=== PATIENT | female | born 1990 | race Caucasian/White ===

== ENCOUNTER → 2023-07-12 13:19 | Outpatient (BNVA) | payer MEDICAID, SELFPAY | PROVIDERS: Visit Provider Nurse Practitioner Women's Health | DX: Z34.90 Encounter for supervision of normal pregnancy, unspecified, unspecified trimester (principal) | CPT/HCPCS: 80053; 80307; 81000; 82570; 84156; 84439; 84443; 84481; 84550; 85027; 86592; 86762; 86803; 86850; 86900; 87086; 87340; 87806 ==

== ENCOUNTER 2023-07-23 13:07 | Outpatient (CLI) | payer MEDICAID, SELFPAY ==
[2023-07-23 13:55] LABS: Total Volume, Urine 3100 mL
== END 2023-07-23 13:08 | disposition home or self-care (01) ==
PROVIDERS: Visit Provider Nurse Practitioner Women's Health
DX: Z34.90 Encounter for supervision of normal pregnancy, unspecified, unspecified trimester (principal)
CPT/HCPCS: 76817; 81000; 84156

== ENCOUNTER → 2023-08-21 08:51 | Outpatient (BNVA) | payer MEDICAID, SELFPAY | PROVIDERS: Visit Provider Obstetrics & Gynecology | DX: O09.90 Supervision of high risk pregnancy, unspecified, unspecified trimester (principal); Z3A.11 11 weeks gestation of pregnancy | CPT/HCPCS: 76801; 81000 ==

== ENCOUNTER 2023-08-30 06:43 | Emergency (ER) | payer MEDICAID, SELFPAY ==
[2023-08-30 06:48] VITALS: BP 177/125; PULSE 91; RESP 18; O2SAT 99; BMI 44.1
--- NOTE | 2023-08-30 06:53 | W.ED.ABDPA2 ---
HPI - Abdominal Pain General: Chief Complaint: Abdominal Pain Stated Complaint: left abd pain Time Seen by Provider: 08/30/23 06:45 Source: patient Mode of arrival: ambulatory History of Present Illness: 33-year-old female presents emergency room complaining of left upper quadrant left flank pain. (The nurses note says left lower quadrant pain however when I talked with patient she repeatedly refers to the left lower ribs at the anterior axillary line.) She is currently 12 weeks . She states pain is worse takes a deep breath talks or moves. Patient states she is G8, P3 SAB 4 with a history of preeclampsia in induced hypertension. She denies any dysuria urgency or frequency no vaginal discharge or bleeding no hematuria. No reflux no vomiting or diarrhea no hematochezia melena hematemesis coffee-ground emesis MD elicited complaint: abdominal pain Onset (ago): hour(s) Pain Consistency: intermittent Location: Other (Left lower ribs at the anterior axillary line) Severity: moderate Quality: sharp Exacerbating factors: nothing Relieving factors: nothing Associated Symptoms: Denies anorexia, belching, bloating, change in bowel habits, change in stool character, chills, coffee ground emesis, constipation, GI cramping, diarrhea, dyspepsia, dysuria, excessive flatus, fever(s), heartburn, hematochezia, hematuria, hematemesis, fecal incontinence, loose stools, melena, nausea, poor appetite, syncope and vomiting Review of Systems Const: Denies: fever(s), chills, fatigue or malaise Card: Denies: chest pain, palpitations, syncope, dyspnea on exertion or orthopnea Resp: Denies: dyspnea GI: Denies: abdominal pain, nausea, vomiting, hematemesis, coffee ground emesis, heartburn, diarrhea, constipation, bloating, GI cramping, belching, excessive flatus, fecal incontinence, change in bowel habits, change in stool character, hematochezia or melena : Denies: flank pain, dysuria, urinary frequency, urinary urgency or hematuria Musc: Denies: neck pain or back pain Skin/Breast: Denies: rash PFSH ED PFSH: Family History Denies family history of Colon cancer Ovarian cancer Thyroid cancer Diabetes Heart disease Breast cancer Hypertension Uterine cancer Stroke Physical Exam Const: GENERAL APPEARANCE: cooperative and comfortable ORIENTATION/CONSCIOUSNESS: Yes awake, Yes oriented to person, Yes oriented to place and Yes oriented to time HENMT: COMMON NORMALS: normocephalic, atraumatic and hearing grossly normal bilaterally HEAD & SCALP: normocephalic and atraumatic Chest: OTHER: Left lower rib pain with reproducible pain with palpation. No rash no inflammation no crepitus Resp: COMMON NORMALS: normal respiratory effort, No retractions, No use of accessory muscles and clear to auscultation bilaterally AUSCULTATION: clear to auscultation bilaterally Cardio: COMMON NORMALS: regular rate, regular rhythm and No murmurs present (Cardio) RATE: regular rate RHYTHM: regular rhythm GI: COMMON NORMALS: Soft to palpation and No hepatosplenomegaly present AUSCULTATION: Yes normoactive bowel sounds PALPATION: Yes Soft to palpation, No Tenderness to palpation present (GI), No Guarding due to palpation present (GI) and Yes No hepatosplenomegaly present Extremity: COMMON NORMALS: normal to inspection, capillary refill normal, no clubbing, cyanosis or edema, no calf tenderness and no pedal edema Neuro: SENSORIUM/ORIENTATION: Yes oriented to person, Yes oriented to place and Yes oriented to time Skin: COMMON NORMALS: no rashes or lesions noted GENERAL SKIN EXAM: no rashes or lesions noted Course Vital Signs: Vital signs: Vital Signs Pulse Rate 82 08/30/23 07:59 Respiratory Rate 18 08/30/23 06:48 Blood Pressure 151/98 08/30/23 07:59 Pulse Oximetry 94 08/30/23 07:59 Oxygen Delivery Me thod Room Air 08/30/23 07:59 MDM - Abdominal Pain Medical Decision Making Labs Reviewed. Exam benign UA shows no sign of cystitis no evidence of nephrolithiasis pain is reproducible with motion palpation and deep breath. Most likely musculoskeletal in nature Tylenol and ibuprofen. Also discussed patient concerns regarding her blood pressure strongly encouraged her to follow-up with her primary care or OB regarding her blood pressure at this significantly elevated first reading I think was spurious but she was persistently high even after that with her final reading at 151/98. She relates she has had chronic hypertension issues and hypertension and preeclampsia with her previous pregnancies as well. Medical Records I reviewed the patient's medical records. Lab Data I reviewed the patient's lab results. 08/30/23 07:06 08/30/23 07:06 Labs/Radiology: Laboratory Results WBC 6.83 10^3/uL (3.29-11.43) 08/30/23 07:06 RBC 4.72 10^6/uL (3.85-5.65) 08/30/23 07:06 Hgb 13.00 g/dL (11.27-16.99) 08/30/23 07:06 Hct 40.9 % (36-47) 08/30/23 07:06 MCV 86.7 fl (85-98) 08/30/23 07:06 MCH 27.5 pg (27-33) 08/30/23 07:06 MCHC 31.8 g/dL (30-55) 08/30/23 07:06 RDW 13.0 % (12.1-15.1) 08/30/23 07:06 Plt Count 235 10^3/cmm (157-399) 08/30/23 07:06 MPV 9.5 fL (7.4-10.4) 08/30/23 07:06 Neut % (Auto) 72.7 % 08/30/23 07:06 Lymph % (Auto) 20.8 % 08/30/23 07:06 [place] % (Auto) 4.8 % 08/30/23 07:06 Eos % (Auto) 0.6 % 08/30/23 07:06 Baso % (Auto) 0.7 % 08/30/23 07:06 Neut # (Auto) 4.96 10^3/uL (1.8-7.7) 08/30/23 07:06 Lymph # (Auto) 1.4 10^3/uL (0.8-4.8) 08/30/23 07:06 [place] # (Auto) 0.3 10^3/uL (0.2-0.9) 08/30/23 07:06 Eos # (Auto) 0.0 10^3/uL (0.0-0.8) 08/30/23 07:06 Baso # (Auto) 0.1 10^3/uL (0.0-0.1) 08/30/23 07:06 Nucleated RBC % (auto) 0 % 08/30/23 07:06 Nucleated RBCs # 0.0 /100WBC 08/30/23 07:06 Sodium 136 mmol/L (136-145) 08/30/23 07:06 Potassium 3.9 mmol/L (3.5-5.1) 08/30/23 07:06 Chloride 103 mmol/L (98-107) 08/30/23 07:06 Carbon Dioxide 21 mmol/L (22-29) L 08/30/23 07:06 Anion Gap 15.9 (5-19) 08/30/23 07:06 BUN 6 mg/dL (6-20) 08/30/23 07:06 Creatinine 0.5 mg/dL (0.5-0.9) 08/30/23 07:06 GFR Calculation 142.1 mL/min (90-130) H 08/30/23 07:06 Glucose 94 mg/dL (65-115) 08/30/23 07:06 Calculated Osmolality 279 mOsm/kg (285-295) L 08/30/23 07:06 Calcium 9.4 mg/dL (8.5-10.5) 08/30/23 07:06 Total Bilirubin 0.3 mg/dL (0.15-1.2) 08/30/23 07:06 AST 19 U/L (0-32) 08/30/23 07:06 ALT 26 U/L (0-33) 08/30/23 07:06 Alkaline Phosphatase 83 U/L (35-105) 08/30/23 07:06 Total Protein 7.2 g/dL (6.6-8.7) 08/30/23 07:06 Albumin 3.9 g/dL (3.5-5.2) 08/30/23 07:06 Globulin 3.3 g/dL (1.3-4.6) 08/30/23 07:06 Lipase 20 U/L (13-60) 08/30/23 07:06 HCG, Qual Positive (Negative) H 08/30/23 07:06 Urine Color Yellow (Yellow) 08/30/23 07:33 Urine Appearance Clear (CLEAR) 08/30/23 07:33 Urine pH 6 (5-7) 08/30/23 07:33 Ur Specific [place] 1.010 (1.005-1.030) 08/30/23 07:33 Urine Protein Neg (Negative) 08/30/23 07:33 Urine Glucose (UA) Norm (Normal) 08/30/23 07:33 Urine Ketones 1+ (Negative) H 08/30/23 07:33 Urine Blood Neg (Negative) 08/30/23 07:33 Urine Nitrate Negative (Negative) 08/30/23 07:33 Urine Bilirubin Neg (Negative) 08/30/23 07:33 Urine Urobilinogen Norm mg/dL (Negative) 08/30/23 07:33 Ur Leukocyte Esterase Negative (Negative) 08/30/23 07:33 No radiology studies performed this visit Discharge Plan Discharge Patient Disposition: Home Clinical Impression: Rib pain on left side, Chronic hypertension during Condition: Stable Prescriptions: No Action Multivitamins 28 mg iron- 800 mcg Tablet 1 tab PO QAM Discharge Orders: Discharge ED (Routine); Ordered 08/30/23 Ordered By: Russell Meyers Discharge Diet: Usual diet Discharge Activity: Resume usual activity Patient Instructions: Opioid Safety, Pain Management Activity Restrictions/Additional Instructions: Thank you for choosing [facility] for your healthcare needs today. Please realize this is an emergency room and that we are providing you with a medical screening exam and this may not be complete and all inclusive of all the testing and or work up that you may need to determine your ailment or severity of your illness. It is very important that you follow up as instructed or that you return to the Emergency Department should you have concerns or if your condition changes or worsens in any way. Evaluated for left flank pain. Your urine was normal there is no sign of infection or blood reflecting a kidney stone white count was normal as well. On exam your pain is reproducible with palpation across the ribs. Suspect this is musculoskeletal in nature. You can use Tylenol or ibuprofen. Your blood pressure was noted to be elevated as well. Strongly encourage you to follow-up with your primary aquatic ecologist in regards to your blood pressure. Coding Level of Care Code ED Health Insurance Assessor for [place]
[2023-08-30 07:04] VITALS: BP 139/105; PULSE 90; O2SAT 93
--- NOTE | 2023-08-30 07:10 | PC.PHAR ---
pt states only been taking multivitamins -pt states not taking any otc meds
[2023-08-30 07:12] LABS: Basophils # 0.1 10^3/uL (0.0-0.1); Basophils % 0.7 %; Eosinophils % 0.6 %; Hematocrit 40.9 % (36-47); Lymphocytes # 1.4 10^3/uL (0.8-4.8); Lymphocytes % 20.8 %; Mean Corpuscular HGB Conc 31.8 g/dL (30-55); Mean Corpuscular Hemoglobin 27.5 pg (27-33); Mean Corpuscular Volume 86.7 fl (85-98); Mean Platelet Volume 9.5 fL (7.4-10.4); Monocytes # 0.3 10^3/uL (0.2-0.9); Monocytes % 4.8 %; Neutrophils # 4.96 10^3/uL (1.8-7.7); Neutrophils % 72.7 %; Nucleated Red Blood Cells % 0 %; Platelet Count 235 10^3/cmm (157-399); Red Blood Count 4.72 10^6/uL (3.85-5.65); White Blood Count 6.83 10^3/uL (3.29-11.43)
[2023-08-30 07:35] VITALS: PULSE 96; O2SAT 96
[2023-08-30 07:45] LABS: Add Urine Microscopic? NO; Charge for UA Resulting for Rev
[2023-08-30 07:47] LABS: HCG, Serum Qual Positive (Negative)
[2023-08-30 07:48] LABS: Alanine Aminotransferase 26 U/L (0-33); Albumin Level 3.9 g/dL (3.5-5.2); Alkaline Phosphatase 83 U/L (35-105); Anion Gap 15.9 (5-19); Aspartate Amino Transferase 19 U/L (0-32); Blood Urea Nitrogen 6 mg/dL (6-20); Calcium 9.4 mg/dL (8.5-10.5); Carbon Dioxide 21 mmol/L (22-29); Chloride 103 mmol/L (98-107); Globulin 3.3 g/dL (1.3-4.6); Glomerular Filtration Rate 142.1 mL/min (90-130); Glucose 94 mg/dL (65-115); Lipase 20 U/L (13-60); Osmolality Calculated 279 mOsm/kg (285-295); Potassium 3.9 mmol/L (3.5-5.1); Sodium 136 mmol/L (136-145); Total Bilirubin 0.3 mg/dL (0.15-1.2); Total Protein 7.2 g/dL (6.6-8.7)
[2023-08-30 07:59] VITALS: BP 151/98; PULSE 82; O2SAT 94
[2023-08-30 08:07] LABS: Bilirubin Urine Neg (Negative); Blood Urine Neg (Negative); Glucose Urine UA Norm (Normal); Ketones Urine 1+ (Negative); Leukocyte Esterase Urine Negative (Negative); Nitrate Urine Negative (Negative); Protein Urine Neg (Negative); Urine Appearance Clear (CLEAR); Urine Color Yellow (Yellow); Urobilinogen Urine Norm (Negative); pH Urine 6 (5-7)
[2023-08-30 08:25] VITALS: PULSE 82; O2SAT 94
== END 2023-08-30 08:26 | disposition home or self-care (01) ==
PROVIDERS: Emergency Provider Family Medicine
DX: O26.891 Other specified pregnancy related conditions, first trimester (principal); R07.81 Pleurodynia; O16.1 Unspecified maternal hypertension, first trimester; Z3A.12 12 weeks gestation of pregnancy
CPT/HCPCS: 36415; 80053; 81003; 83690; 84703; 85025; 99283

== ENCOUNTER → 2023-09-02 12:18 | Outpatient (BNVA) | payer MEDICAID, SELFPAY | PROVIDERS: Visit Provider Obstetrics & Gynecology | DX: O09.90 Supervision of high risk pregnancy, unspecified, unspecified trimester (principal); Z3A.00 Weeks of gestation of pregnancy not specified | CPT/HCPCS: 81000 ==

== ENCOUNTER → 2023-10-01 09:17 | Outpatient (BNVA) | payer MEDICAID, SELFPAY | PROVIDERS: Visit Provider Obstetrics & Gynecology | DX: O09.90 Supervision of high risk pregnancy, unspecified, unspecified trimester (principal); Z3A.16 16 weeks gestation of pregnancy | CPT/HCPCS: 81000; 82950; 85025 ==

== ENCOUNTER 2023-10-23 11:43 | Outpatient (CLI) | payer MEDICAID, SELFPAY ==
[2023-10-23] VITALS (7 sets, daily range): BP systolic 140–193; BP diastolic 91–103; PULSE 79–96; BMI 45.1
== END 2023-10-23 13:57 | disposition home or self-care (01) ==
LOC: OPOB 11:46 → OBGYN 11:47
PROVIDERS: Visit Provider Obstetrics & Gynecology
DX: O26.899 Other specified pregnancy related conditions, unspecified trimester (principal); Z3A.00 Weeks of gestation of pregnancy not specified; R10.9 Unspecified abdominal pain; R42 Dizziness and giddiness
CPT/HCPCS: 99211

== ENCOUNTER → 2023-11-12 11:16 | Outpatient (BNVA) | payer MEDICAID, SELFPAY | PROVIDERS: Visit Provider Obstetrics & Gynecology | DX: O09.299 Supervision of pregnancy with other poor reproductive or obstetric history, unspecified trimester (principal); Z3A.20 20 weeks gestation of pregnancy | CPT/HCPCS: 76805 ==

== ENCOUNTER → 2023-11-27 07:50 | Outpatient (BNVA) | payer MEDICAID, SELFPAY | PROVIDERS: Visit Provider Obstetrics & Gynecology | DX: O09.90 Supervision of high risk pregnancy, unspecified, unspecified trimester (principal); Z3A.24 24 weeks gestation of pregnancy | CPT/HCPCS: 81000 ==

== ENCOUNTER 2023-12-16 15:38 | Outpatient (CLI) | payer MEDICAID, SELFPAY ==
[2023-12-16] VITALS (20 sets, daily range): BP systolic 139–185; BP diastolic 63–110; PULSE 70–96; RESP 16
[2023-12-16 16:08] LABS: Add Urine Microscopic? NO; Charge for UA Resulting for Rev
[2023-12-16 16:32] LABS: Urine Appearance Clear (CLEAR); Urine Color Light yellow (Yellow)
[2023-12-16 16:33] LABS: Bilirubin Urine Neg (Negative); Blood Urine Neg (Negative); Glucose Urine UA Norm (Normal); Ketones Urine Negative (Negative); Leukocyte Esterase Urine Negative (Negative); Nitrate Urine Negative (Negative); Protein Urine Neg (Negative); Specific Gravity, Urine 1.005 (1.005-1.030); Urobilinogen Urine Neg (Negative); pH Urine 7 (5-7)
[2023-12-16 16:43] LABS: Basophils % 0.2 %; Eosinophils # 0.1 10^3/uL (0.0-0.8); Eosinophils % 0.6 %; Lymphocytes # 2.1 10^3/uL (0.8-4.8); Lymphocytes % 17.6 %; Mean Corpuscular HGB Conc 33.2 g/dL (30-55); Mean Corpuscular Hemoglobin 28.4 pg (27-33); Mean Corpuscular Volume 85.5 fl (85-98); Monocytes # 0.7 10^3/uL (0.2-0.9); Monocytes % 6.1 %; Neutrophils # 8.74 10^3/uL (1.8-7.7); Nucleated Red Blood Cells % 0 %; Platelet Count 285 10^3/cmm (157-399); Red Blood Count 4.33 10^6/uL (3.85-5.65); Red Cell Distribution Width 12.6 % (12.1-15.1); White Blood Count 11.65 10^3/uL (3.29-11.43)
[2023-12-16] MEDS: NIFEdipine ER (24 hr) 30 mg Tablet PO (16:43)
[2023-12-16 17:01] LABS: Urine Creatinine 11 mg/dL (28-217); Urine Protein Random 4 mg/dL
[2023-12-16 17:02] LABS: UPRO/UCREAT Ratio 0.36 mg/mg CR
[2023-12-16 17:08] LABS: Alanine Aminotransferase 12 U/L (0-33); Albumin Level 3.4 g/dL (3.5-5.2); Alkaline Phosphatase 90 U/L (35-105); Aspartate Amino Transferase 13 U/L (0-32); Blood Urea Nitrogen 7 mg/dL (6-20); Carbon Dioxide 19 mmol/L (22-29); Chloride 102 mmol/L (98-107); Globulin 2.9 g/dL (1.3-4.6); Glomerular Filtration Rate 183.8 mL/min (90-130); Glucose 143 mg/dL (65-115); Osmolality Calculated 278 mOsm/kg (285-295); Sodium 134 mmol/L (136-145); Total Bilirubin 0.2 mg/dL (0.15-1.2); Total Protein 6.3 g/dL (6.6-8.7); Uric Acid 4.4 mg/dL (2.4-5.7)
--- NOTE | 2023-12-16 20:42 | P.PN_ITS ---
HEALTH CENTER MANAGER Subjective 2 Subjective: Interval history: 33 y.o. A4 LMP May 09, 2023 EDC March 13, 2024 by 6-week sono; differs from LMP At 27 w 3 d Was seen for visit today and found to have elevated BP Sent to L&D for evaluation No c/o No headache, blurry vision, abdominal pain, vaginal bleeding + active movements Had acute allergy to poison [place] with blistering rash on both arms December 13, 2023 Was given prednisone 60 mg daily x 5 days and Benadryl POBHx: x three; had precipitous deliveries, ?babies fell out? Had pre-eclampsia and hypertension at term Delivered previously at 36-37 weeks due to severe hypertension Induced, [place], [place] Induced vaginal deliveries; seen by MFM All: sulfa penicillin Labor: Amniotic Membrane Status: Intact Contraction Pattern: Absent Vitals/I&O/Wt Last Vital Signs Pulse 70 12/16/23 20:27 Resp 16 12/16/23 16:02 BP 139/86 12/16/23 20:27 Physical Exam 2 Narrative: Weight 265 lbs; 5?3 BPs 159 / 97, 141 / 88, 160 / 99, 153 / 93, 153 / 91 Comfortable, awake, alert Lungs: clear Cor: RRR Abd: fundal height 28 cm; nontender Ext: no edema External monitor: no uterine contractions heart tracing good variability, + accelerations UA today negative for protein Data 12/16/23 16:29 12/16/23 16:29 A&P Assessment and plan (1) Supervision of high-risk : 27 w 3 d (2) Hypertension affecting : Elevated BPs Patient with no headaches or edema Gestational hypertension vs. preeclampsia Will start Procardia 30 mg XL one PO daily Start 24-h urine collection for protein Discharge to home Bedrest as much as possible Return to see me December 23, 2023 Call / return if headaches, blurry vision, malaise, swelling, abdominal pain Attestations 2 Medical Necessity Statement*: patient at 27 w 3 d, with elevated BPs Coding Level of Care Code Acute Code for Chg Fwd Diagnoses Supervision of high-risk O09.90 Hypertension affecting O16.9 Time Spent (min) 60
== END 2023-12-16 21:00 | disposition home or self-care (01) ==
LOC: OPOB 15:42 → OBGYN 15:47
PROVIDERS: Visit Provider Obstetrics & Gynecology
DX: O16.9 Unspecified maternal hypertension, unspecified trimester (principal); Z3A.00 Weeks of gestation of pregnancy not specified
CPT/HCPCS: 36415; 59025; 80053; 81000; 81003; 82570; 84156; 84550; 85025; 99211

== ENCOUNTER 2023-12-18 09:20 | Outpatient (CLI) | payer MEDICAID, SELFPAY ==
[2023-12-18 14:15] LABS: Urine Total Protein 4.9 mg/dL (0-150)
[2023-12-18 14:18] LABS: Total Volume, Urine 2400 mL; Urine Total Protein 24 Hour 117.6 mg/24hr (0-150)
--- NOTE | 2023-12-18 14:49 | PC.NURSE ---
[address] BURTON WITH 24 HOUR URINE PROTEIN RESULTS, WERE NOT CRITICAL BUT RESULTS ANYWAY.
== END 2023-12-18 09:21 | disposition home or self-care (01) ==
LOC: LAB 09:21
PROVIDERS: Visit Provider Obstetrics & Gynecology
DX: Z01.89 Encounter for other specified special examinations (principal)
CPT/HCPCS: 84156

== ENCOUNTER → 2023-12-23 08:08 | Outpatient (BNVA) | payer MEDICAID, SELFPAY | PROVIDERS: Visit Provider Obstetrics & Gynecology | DX: O16.9 Unspecified maternal hypertension, unspecified trimester (principal); O09.90 Supervision of high risk pregnancy, unspecified, unspecified trimester; Z3A.28 28 weeks gestation of pregnancy | CPT/HCPCS: 81000 ==

== ENCOUNTER → 2024-06-11 14:22 | Outpatient (BNVA) | payer MEDICAID, SELFPAY | PROVIDERS: Visit Provider Nurse Practitioner | DX: I10 Essential (primary) hypertension (principal) | CPT/HCPCS: 80053; 80061; 84443; 85025 ==

== ENCOUNTER → 2024-08-06 10:36 | Outpatient (BNVA) | payer MEDICAID, SELFPAY | PROVIDERS: PCP Nurse Practitioner; Referring Provider Nurse Practitioner; Visit Provider Internal Medicine Cardiovascular Disease | DX: I10 Essential (primary) hypertension (principal); I49.8 Other specified cardiac arrhythmias; I44.4 Left anterior fascicular block | CPT/HCPCS: 93005 ==

== ENCOUNTER 2024-08-06 10:50 | Outpatient (CLI) | payer MEDICAID, SELFPAY ==
--- NOTE | 2024-08-06 10:57 | XR_ITS ---
WS: [id number] XR chest 2V* [id number] REASON FOR EXAM: I10 - Essential (primary) hypertension FINDINGS: There is mild cardiomegaly. There is mild tortuosity of the thoracic aorta. Calcified granulomas disease in both hemithoraces. No acute pulmonary parenchymal or pleural abnormality. No dominant noncalcified lung nodule or lung mass. XR/XR chest 2V* [id number] IMPRESSION: Mild cardiomegaly. Chest otherwise unremarkable.
== END 2024-08-06 10:51 | disposition home or self-care (01) ==
LOC: RAD 10:52
PROVIDERS: PCP Nurse Practitioner; Visit Provider Nurse Practitioner
DX: J84.10 Pulmonary fibrosis, unspecified (principal); I10 Essential (primary) hypertension
CPT/HCPCS: 71046

== ENCOUNTER 2024-10-12 11:25 | Outpatient (CLI) | payer MEDICAID, SELFPAY ==
[2024-10-12 12:39] LABS: Basophils # 0.1 10^3/uL (0.0-0.1); Basophils % 0.7 %; Eosinophils # 0.1 10^3/uL (0.0-0.8); Eosinophils % 0.5 %; Hematocrit 41.9 % (36-47); Lymphocytes # 1.8 10^3/uL (0.8-4.8); Lymphocytes % 17.9 %; Mean Corpuscular Hemoglobin 25.9 pg (27-33); Mean Corpuscular Volume 83.6 fl (85-98); Mean Platelet Volume 9.4 fL (7.4-10.4); Monocytes # 0.6 10^3/uL (0.2-0.9); Monocytes % 6.1 %; Neutrophils # 7.57 10^3/uL (1.8-7.7); Neutrophils % 74.5 %; Nucleated Red Blood Cells % 0 %; Platelet Count 400 10^3/cmm (157-399); Red Blood Count 5.01 10^6/uL (3.85-5.65); Red Cell Distribution Width 13.7 % (12.1-15.1); White Blood Count 10.16 10^3/uL (3.29-11.43)
[2024-10-12 12:56] LABS: Estmated Average Glucose 103; Hemoglobin A1C 5.2 % (4.0-6.0)
[2024-10-12 13:17] LABS: 25 Hydroxy Vitamin D 24 ng/mL (30-100); Alanine Aminotransferase 16 U/L (0-33); Albumin Level 4.2 g/dL (3.5-5.2); Alkaline Phosphatase 88 U/L (35-105); Anion Gap 13.7 (5-19); Aspartate Amino Transferase 15 U/L (0-32); Blood Urea Nitrogen 18 mg/dL (6-20); Calcium 9.4 mg/dL (8.5-10.5); Carbon Dioxide 26 mmol/L (22-29); Chloride 103 mmol/L (98-107); Ferritin 26 ng/mL (15-150); Folate Level 11.7 ng/mL (4.8-37.3); Globulin 3.2 g/dL (1.3-4.6); Glomerular Filtration Rate 114.4 mL/min (90-130); Glucose 91 mg/dL (65-115); Iron 58 ug/dL (37-145); Osmolality Calculated 287 mOsm/kg (285-295); Percent Saturation 21.1 % (20-50); Potassium 4.7 mmol/L (3.5-5.1); Sodium 138 mmol/L (136-145); Thyroid Stimulating Hormone 1.23 uIU/mL (0.27-4.20); Total Bilirubin 0.4 mg/dL (0.15-1.2); Total Iron Binding Capacity 274 mcg/dl; Total Protein 7.4 g/dL (6.6-8.7); Unsaturated Iron Binding 216 ug/dL (112-347); Vitamin B12 467 pg/mL (232-1245)
== END 2024-10-12 11:26 | disposition home or self-care (01) ==
PROVIDERS: PCP Nurse Practitioner
DX: E66.01 Morbid (severe) obesity due to excess calories (principal); E55.9 Vitamin D deficiency, unspecified; Z86.39 Personal history of other endocrine, nutritional and metabolic disease
CPT/HCPCS: 36415; 80053; 82306; 82525; 82607; 82728; 82746; 83036; 83540; 83550; 84207; 84425; 84443; 84590; 84597; 84630; 85025

== ENCOUNTER 2025-03-10 10:31 | Outpatient (CLI) | payer MEDICAID, SELFPAY ==
[2025-03-13 05:05] LABS: Alpha-Tocopherol 9.5 mg/L (5.7-19.9); Beta-Gamma-Tocopherol 2.7 mg/L (<4.4)
== END 2025-03-10 10:32 | disposition home or self-care (01) ==
LOC: LAB 10:32
PROVIDERS: PCP Nurse Practitioner; Visit Provider Nurse Practitioner
DX: E66.01 Morbid (severe) obesity due to excess calories (principal); E55.9 Vitamin D deficiency, unspecified
CPT/HCPCS: 36415; 84446